=== PATIENT | male | born 1960 | race Asian ===

== ENCOUNTER 2022-04-23 08:06 | Outpatient (CLI) | payer OTHER | END 2022-04-23 08:07 | disposition home or self-care (01) | LOC: CSHULT 08:06 | PROVIDERS: ATTEND Family Medicine | DX: R10.13 Epigastric pain (principal) | CPT/HCPCS: 76705 ==

== ENCOUNTER 2023-01-29 14:09 | Outpatient (CLI) | payer BC ==
[~2023-01-29 14:09] MED LIST: Iopamidol 300 61% 100 ML VIAL FS ONE
== END 2023-01-29 14:10 | disposition home or self-care (01) ==
LOC: CSHCT 14:09
PROVIDERS: ATTEND Urology
DX: R31.29 Other microscopic hematuria (principal); N32.89 Other specified disorders of bladder; N20.0 Calculus of kidney
CPT/HCPCS: 74178; 82565

== ENCOUNTER 2023-08-05 09:43 | Outpatient (CLI) | payer BC | END 2023-08-05 09:44 | disposition home or self-care (01) | LOC: CSHULT 09:43 | PROVIDERS: ATTEND Urology | DX: N20.0 Calculus of kidney (principal) | CPT/HCPCS: 76770 ==